=== PATIENT | male | born 1945 | race Caucasian/White ===

== ENCOUNTER 2016-09-15 08:00 | Day surgery (SDC) | payer OTHER ==
[2016-09-11 10:47] LABS: Basophils # (auto) 0 uL; Basophils % (auto) 0.3 % (0.0-2.0); Eosinophils # (auto) 0.1 uL; Eosinophils % (auto) 1.3 % (0.0-7.0); Hematocrit 43.2 % (41.0-53.0); Hemoglobin 14.4 g/dL (13.5-17.5); Lymphocytes # (auto) 2.9 uL; Lymphocytes % (auto) 31.5 % (10.0-50.0); Mean Corpuscular Hemoglobin 32.4 pg (28.0-32.0); Mean Corpuscular Hgb Conc. 33.3 g/dL (32.0-36.0); Mean Corpuscular Volume 97.5 fL (80.0-100.0); Mean Platelet Volume 8.2 fL (7.4-10.4); Monocytes # (auto) 0.4 uL; Monocytes % (auto) 4.4 % (0.0-12.0); Neutrophils # (auto) 5.7 uL; Neutrophils % (auto) 62.5 % (37.0-80.0); Platelet Count (auto) 233 10^3/uL (140-450); Red Cell Distribution Width 13.1 % (11.6-16.0); White Blood Cell 9.2 10^3/uL (4.4-10.8)
[2016-09-11 11:20] LABS: Partial Thromboplastin Time 22.9 sec (22.64-33.71); Prothrombin Time 10.3 sec (9.37-12.3)
[~2016-09-15] VITALS: Ht 160 cm; Wt 75.7 kg
[~2016-09-15 08:00] MED LIST: ACET-929 PO; ATOR10TA52 PO; IBUP800T24 PO; PERI1TAB PO
[2016-09-15] MEDS ORDERED: diphenhdrAMINE HCL 50 MG/1 ML VL ONE (08:10)
[2016-09-15] MEDS ORDERED: SODIUM CHLORIDE LOCK 10 ML ONE (08:10)
[2016-09-15] MEDS ORDERED: NALOXONE HCL 0.4 MG/ML VIAL ONE (08:11)
[2016-09-15] MEDS ORDERED: FLUMAZENIL 0.1 MG/ML INJ 10ML MDV IV ONE (08:11)
[2016-09-15] MEDS: MIDAZOLAM HCL 5 MG/ML-1ML VIAL ONE ×4 (09:34→09:46)
[2016-09-15] MEDS: fentaNYL CITRATE 100 MCG/2 ML VL ONE ×3 (09:34→09:42)
[2016-09-15] MEDS ORDERED: LABETALOL HCL 5 MG/ML 4ML SYRINGE IV ONE ×2 (10:30→10:45)
[2016-09-15] MEDS ORDERED: hydrALAZINE HCL 20 MG/ML VL ONE (11:01)
[2016-09-15] MEDS ORDERED: hydrALAZINE HCL 20 MG/ML VL IV ONE (11:15)
[2016-09-15 12:00] VITALS: BP 163/90
== END 2016-09-15 12:00 | disposition home or self-care (01) ==
LOC: GI 08:00
PROVIDERS: ATTEND Internal Medicine Gastroenterology
DX: Z12.11 Encounter for screening for malignant neoplasm of colon (principal); K57.30 Diverticulosis of large intestine without perforation or abscess without bleeding; Z87.891 Personal history of nicotine dependence
CPT/HCPCS: 36415; 45378; 85025; 85610; 85730; J0360; J1200; J2250; J3010; J3490; J7030

== ENCOUNTER → 2016-09-25 | Outpatient (CLI) | payer OTHER ==
[2016-09-25 11:07] LABS: Urine RBC None Seen /hpf (0 - 3)
[2016-09-25 11:21] LABS: Basophils # (auto) 0 uL; Basophils % (auto) 0.4 % (0.0-2.0); Eosinophils # (auto) 0.2 uL; Eosinophils % (auto) 2.2 % (0.0-7.0); Hematocrit 42.6 % (41.0-53.0); Lymphocytes # (auto) 2.5 uL; Lymphocytes % (auto) 30.3 % (10.0-50.0); Mean Corpuscular Hemoglobin 32.2 pg (28.0-32.0); Mean Corpuscular Hgb Conc. 32.9 g/dL (32.0-36.0); Mean Corpuscular Volume 98.1 fL (80.0-100.0); Mean Platelet Volume 8.3 fL (7.4-10.4); Monocytes # (auto) 0.4 uL; Monocytes % (auto) 5.5 % (0.0-12.0); Neutrophils % (auto) 61.6 % (37.0-80.0); Platelet Count (auto) 258 10^3/uL (140-450); Red Cell Distribution Width 13.2 % (11.6-16.0); White Blood Cell 8.2 10^3/uL (4.4-10.8)
[2016-09-25 11:30] LABS: Urine Bilirubin Negative (Negative); Urine Blood Negative /uL (Negative); Urine Glucose Normal (Normal); Urine Ketone Negative (Negative); Urine Nitrite Negative (Negative); Urine Squamous Epithelial Cell FEW /hpf (<5); Urine Urobilinogen Normal (Negative)
[2016-09-25 11:32] LABS: Urine Color Straw (Yellow)
[2016-09-25 11:43] LABS: Albumin 4.1 g/dL (3.4-5.0); BUN/Creatinine Ratio 26.5; Bilirubin, Total 0.5 mg/dL (0.2-1.0); Calcium 8.6 mg/dL (8.5-10.1); Potassium 4.2 mmol/L (3.5-5.1); Total Protein 6.8 g/dL (6.4-8.2)
== END | disposition home or self-care (01) ==
LOC: LAB 10:37
PROVIDERS: ATTEND Internal Medicine
DX: Z00.00 Encounter for general adult medical examination without abnormal findings (principal); E55.9 Vitamin D deficiency, unspecified
CPT/HCPCS: 36415; 80053; 80061; 81001; 82306; 83036; 84153; 85025; 85049

== ENCOUNTER → 2016-10-20 | Outpatient (CLI) | payer OTHER | END | disposition home or self-care (01) | LOC: LAB 13:19 | PROVIDERS: ATTEND Internal Medicine Gastroenterology | DX: Z12.11 Encounter for screening for malignant neoplasm of colon (principal) | CPT/HCPCS: 82270 ==

== ENCOUNTER → 2016-10-20 | Outpatient (CLI) | payer OTHER | END | disposition home or self-care (01) | LOC: LAB 10:00 | PROVIDERS: ATTEND Internal Medicine | DX: B07.9 Viral wart, unspecified (principal) ==

== ENCOUNTER → 2017-02-10 | Outpatient (CLI) | payer OTHER | END | disposition home or self-care (01) | LOC: XYW 08:05 | PROVIDERS: ATTEND Internal Medicine | DX: Z01.810 Encounter for preprocedural cardiovascular examination (principal); I08.3 Combined rheumatic disorders of mitral, aortic and tricuspid valves; I51.7 Cardiomegaly | CPT/HCPCS: 93306 ==

== ENCOUNTER 2017-05-05 06:08 | Inpatient (IN) | payer OTHER ==
[2017-04-30 11:37] LABS: Basophils # (auto) 0 uL; Basophils % (auto) 0.2 % (0.0-2.0); CONDITION Y; Eosinophils # (auto) 0.1 uL; Eosinophils % (auto) 1.4 % (0.0-7.0); Hematocrit 43.2 % (41.0-53.0); Hemoglobin 14.9 g/dL (13.5-17.5); Lymphocytes # (auto) 2.5 uL; Lymphocytes % (auto) 29.3 % (10.0-50.0); Mean Corpuscular Hemoglobin 33.8 pg (28.0-32.0); Mean Corpuscular Hgb Conc. 34.4 g/dL (32.0-36.0); Mean Corpuscular Volume 98.2 fL (80.0-100.0); Mean Platelet Volume 8.8 fL (7.4-10.4); Monocytes # (auto) 0.4 uL; Monocytes % (auto) 5.1 % (0.0-12.0); Neutrophils # (auto) 5.5 uL; Platelet Count (auto) 242 10^3/uL (140-450); Red Cell Distribution Width 13.3 % (11.6-16.0); White Blood Cell 8.6 10^3/uL (4.4-10.8)
[2017-04-30 11:42] LABS: Urine Bilirubin Negative (Negative); Urine Blood Negative /uL (Negative); Urine Glucose Normal (Normal); Urine Ketone Negative (Negative); Urine Nitrite Negative (Negative); Urine RBC <1 /hpf (0 - 3); Urine Urobilinogen Normal (Negative)
[2017-04-30 11:50] LABS: Albumin 4.1 g/dL (3.4-5.0); BUN/Creatinine Ratio 21.7; Bilirubin, Total 0.9 mg/dL (0.2-1.0); Calcium 8.8 mg/dL (8.5-10.1); Total Protein 7.1 g/dL (6.4-8.2)
[2017-04-30 11:57] LABS: INR 0.96 (0.9-1.15); Partial Thromboplastin Time 26.7 sec (22.64-33.71); Prothrombin Time 10.5 sec (9.37-12.3)
[2017-04-30 12:09] LABS: Urine Color Straw (Yellow)
[~2017-05-05] VITALS: Ht 160 cm; Wt 90.4 kg
[~2017-05-05 06:08] MED LIST changes: -ACET-929 PO
[2017-05-05] MEDS ORDERED: ceFAZolin 1GM/50ML D5W 100 ML IV ONE (06:21)
[2017-05-05] MEDS ORDERED: fentaNYL CITRATE 100 MCG/2 ML VL ONE (07:11)
[2017-05-05] MEDS ORDERED: MORPHINE SULF(PF) 0.5MG/ML 10ML VIAL ONE (07:11)
[2017-05-05] MEDS ORDERED: MIDAZOLAM HCL 1MG/1ML-2 ML VIAL ONE ×2 (07:12→07:42)
[2017-05-05] MEDS ORDERED: TETRACAINE 1% INJ 2 ML VIAL IJ ONE (07:13)
[2017-05-05] MEDS ORDERED: PROPOFOL 10 MG/ML 20 ML IV ONE (07:41)
[2017-05-05] MEDS ORDERED: DEXAMETHASONE SOD PHOS 10MG/1ML VIAL INJ ONE (07:41)
[2017-05-05] MEDS ORDERED: NALOXONE HCL 0.4 MG/ML VIAL IV PRN (08:15)
[2017-05-05] MEDS ORDERED: DEXAMETHASONE SOD PHOS 10MG/1ML VIAL INJ IV PRN (08:15)
[2017-05-05] MEDS ORDERED: HYDROmorphone HCL 2 MG/ML VL IV PRN (08:15)
[2017-05-05] MEDS ORDERED: ePHEDrine SULFATE 50 MG/ML AMP IV PRN (08:15)
[2017-05-05] MEDS ORDERED: ONDANSETRON HCL 4 MG/2 ML VIAL IV ONE (08:15)
[2017-05-05] MEDS ORDERED: KETOROLAC TROMETH 30 MG/ML 1ML VIAL IV ONE (08:15)
[2017-05-05] MEDS ORDERED: LABETALOL HCL 5 MG/ML 4ML SYRINGE IV PRN (08:15)
[2017-05-05] MEDS ORDERED: NALBUPHINE HCL 10 MG/1ml INJECTION SUBCUT ONE (08:15)
[2017-05-05] MEDS ORDERED: MORPHINE SULF INJ 2 MG/ML SYRINGE 1ML IV PRN (08:15)
[2017-05-05] MEDS ORDERED: MIDAZOLAM HCL 1MG/1ML-2 ML VIAL IV PRN (08:15)
[2017-05-05] MEDS ORDERED: diphenhdrAMINE HCL 50 MG/1 ML VL IV PRN (08:15)
[2017-05-05] MEDS ORDERED: PHENYLEPHRINE HCL 10 MG/ML VL ONE (08:55)
[2017-05-05] MEDS ORDERED: KETOROLAC TROMETH 30 MG/ML 1ML VIAL ONE (08:55)
[2017-05-05] MEDS: LACTATED RINGER'S 1,000 ML IV SCH (10:32)
[2017-05-05] MEDS ORDERED: ACETAMINOPHEN 325 MG TAB PO PRN (10:45)
[2017-05-05] MEDS ORDERED: ONDANSETRON HCL 4 MG/2 ML VIAL IV PRN (10:45)
[2017-05-05] MEDS: ceFAZolin 1GM/50ML D5W 50 ML IV SCH ×4 (12:00→21:30)
[2017-05-05] MEDS: SODIUM CHLOR 0.9% PF (SALINE LOCK) 10ML VIAL IV SCH ×2 (14:00→22:26)
[2017-05-05 16:38] VITALS: BP 151/90
[2017-05-05 17:00] VITALS: BP 151/90
[2017-05-05 20:00] VITALS: BP 124/81
[2017-05-05] MEDS: HYDROmorphone HCL 2 MG/ML VL IV PRN (20:27)
[2017-05-05 22:00] VITALS: BP 124/81
[2017-05-05] MEDS: oxyCODONE ER 10 MG TAB PO SCH (22:25)
[2017-05-05] MEDS: DOCUSATE SOD 100 MG CAP PO SCH (22:25)
[2017-05-06] MEDS: TEMAZEPAM 15 MG CAP PO PRN ×2 (01:00→21:30)
[2017-05-06 05:00] VITALS: BP 124/64
[2017-05-06] MEDS: SODIUM CHLOR 0.9% PF (SALINE LOCK) 10ML VIAL IV SCH ×3 (05:08→21:30)
[2017-05-06] MEDS: LACTATED RINGER'S 1,000 ML IV SCH (05:08)
[2017-05-06] MEDS: HYDROmorphone HCL 2 MG/ML VL IV PRN ×3 (05:44→17:44)
[2017-05-06 06:20] LABS: Hemoglobin 11.6 g/dL (13.5-17.5)
[2017-05-06 09:00] VITALS: BP 122/69
[2017-05-06] MEDS: oxyCODONE ER 10 MG TAB PO SCH ×2 (10:33→21:30)
[2017-05-06] MEDS: ENOXAPARIN SOD 40 MG/0.4 ML SYRINGE SC SCH (10:33)
[2017-05-06] MEDS: DOCUSATE SOD 100 MG CAP PO SCH ×2 (10:33→21:30)
[2017-05-06 13:00] VITALS: BP 124/81
[2017-05-06 17:09] VITALS: BP 147/98
[2017-05-06 21:37] VITALS: BP 143/85
[2017-05-07 04:46] VITALS: BP 165/75
[2017-05-07] MEDS: SODIUM CHLOR 0.9% PF (SALINE LOCK) 10ML VIAL IV SCH ×3 (06:06→21:53)
[2017-05-07 06:14] LABS: Hematocrit 33.2 % (41.0-53.0); Hemoglobin 11.4 g/dL (13.5-17.5)
[2017-05-07] MEDS: HYDROmorphone HCL 2 MG/ML VL IV PRN ×2 (06:55→12:30)
[2017-05-07 08:46] VITALS: BP 166/90
[2017-05-07] MEDS: HYDROcodone-ACET 10/325MG TAB PO PRN ×2 (08:56→17:05)
[2017-05-07] MEDS: ENOXAPARIN SOD 40 MG/0.4 ML SYRINGE SC SCH (10:44)
[2017-05-07] MEDS: oxyCODONE ER 10 MG TAB PO SCH ×2 (10:44→21:53)
[2017-05-07] MEDS: DOCUSATE SOD 100 MG CAP PO SCH ×2 (10:45→21:53)
[2017-05-07] MEDS ORDERED: LISINOPRIL 10 MG TAB PO ONE (11:30)
[2017-05-07 13:00] VITALS: BP 162/91
[2017-05-07 16:29] VITALS: BP 148/97
[2017-05-07 21:50] VITALS: BP 137/75
[2017-05-07] MEDS: TEMAZEPAM 15 MG CAP PO PRN (21:53)
[2017-05-08 04:53] VITALS: BP 119/70
[2017-05-08] MEDS: SODIUM CHLOR 0.9% PF (SALINE LOCK) 10ML VIAL IV SCH ×3 (05:57→21:34)
[2017-05-08] MEDS ORDERED: OMEG1CAP59 PO (07:55)
[2017-05-08] MEDS ORDERED: DIPH25CA66 PO (07:55)
[2017-05-08] MEDS ORDERED: FEXO-42 PO (07:55)
[2017-05-08] MEDS ORDERED: MULTTAB61 PO (07:55)
[2017-05-08] MEDS ORDERED: GLUC1TAB22 PO (07:55)
[2017-05-08] MEDS ORDERED: CHOL20007 PO (07:56)
[2017-05-08 08:10] LABS: Hematocrit 33.7 % (41.0-53.0); Hemoglobin 11.6 g/dL (13.5-17.5)
[2017-05-08 08:33] VITALS: BP 154/97
[2017-05-08] MEDS: HYDROcodone-ACET 10/325MG TAB PO PRN ×2 (08:41→18:02)
[2017-05-08] MEDS: DOCUSATE SOD 100 MG CAP PO SCH ×2 (10:25→21:35)
[2017-05-08] MEDS: ENOXAPARIN SOD 40 MG/0.4 ML SYRINGE SC SCH (10:25)
[2017-05-08] MEDS: oxyCODONE ER 10 MG TAB PO SCH ×2 (10:25→21:35)
[2017-05-08] MEDS: LISINOPRIL 10 MG TAB PO SCH (10:26)
[2017-05-08 13:03] VITALS: BP 125/78
[2017-05-08 16:47] VITALS: BP 135/78
[2017-05-08] MEDS: TEMAZEPAM 15 MG CAP PO PRN (21:35)
[2017-05-08 22:00] VITALS: BP 130/70
[2017-05-09 05:00] VITALS: BP 115/75
[2017-05-09 06:10] LABS: Hematocrit 32.4 % (41.0-53.0)
[2017-05-09] MEDS: SODIUM CHLOR 0.9% PF (SALINE LOCK) 10ML VIAL IV SCH ×2 (06:36→17:22)
[2017-05-09] MEDS: HYDROcodone-ACET 10/325MG TAB PO PRN ×2 (06:41→15:19)
[2017-05-09 08:35] VITALS: BP 134/65
[2017-05-09] MEDS: oxyCODONE ER 10 MG TAB PO SCH (09:16)
[2017-05-09] MEDS: ENOXAPARIN SOD 40 MG/0.4 ML SYRINGE SC SCH (09:16)
[2017-05-09] MEDS: LISINOPRIL 10 MG TAB PO SCH (09:17)
[2017-05-09] MEDS: DOCUSATE SOD 100 MG CAP PO SCH (09:17)
[2017-05-09 12:43] VITALS: BP 137/68
[2017-05-09 16:30] VITALS: BP 111/63
== END 2017-05-09 17:25 | disposition home health service (06) | DRG 470 ==
LOC: SUR 06:08 → TELE-WESTW 06:09
PROVIDERS: ADMIT Orthopaedic Surgery; ATTEND Internal Medicine
PROC: 0SRC0J9 Replacement of Right Knee Joint with Synthetic Substitute, Cemented, Open Approach (ICD-10-PCS; principal; 2017-05-05 07:08)
DX: M17.11 Unilateral primary osteoarthritis, right knee (principal); I10 Essential (primary) hypertension; E78.5 Hyperlipidemia, unspecified; Z87.39 Personal history of other diseases of the musculoskeletal system and connective tissue; Z79.01 Long term (current) use of anticoagulants
CPT/HCPCS: 36415; 73562; 80053; 81001; 85014; 85018; 85025; 85610; 85730; 86850; 86900; 86901; 97116; 97163; 97530; J0690; J1100; J1885; J2250; J2405; J2704

== ENCOUNTER → 2017-07-22 | Outpatient (CLI) | payer OTHER ==
[~2017-07-22] MED LIST changes: +CHOL20007 PO; +DIPH25CA66 PO; +GLUC1TAB22 PO; +MULTTAB61 PO; +OMEG1CAP59 PO
[2017-07-22 08:39] LABS: Basophils # (auto) 0.1 uL; Basophils % (auto) 0.6 % (0.0-2.0); Eosinophils # (auto) 0.2 uL; Hematocrit 41.9 % (41.0-53.0); Hemoglobin 13.8 g/dL (13.5-17.5); Lymphocytes # (auto) 2.4 uL; Lymphocytes % (auto) 29.2 % (10.0-50.0); Mean Corpuscular Hemoglobin 32.1 pg (28.0-32.0); Mean Corpuscular Volume 97.1 fL (80.0-100.0); Mean Platelet Volume 7.3 fL (6.9-10.8); Monocytes # (auto) 0.4 uL; Monocytes % (auto) 5.3 % (0.0-12.0); Neutrophils # (auto) 5.1 uL; Neutrophils % (auto) 61.9 % (37.0-80.0); Platelet Count (auto) 294 10^3/uL (140-450); Red Cell Distribution Width 13.7 % (11.8-14.3); White Blood Cell 8.3 10^3/uL (4.4-10.8)
[2017-07-22 09:09] LABS: Albumin 3.9 g/dL (3.4-5.0); BUN/Creatinine Ratio 21.2; Bilirubin, Total 0.3 mg/dL (0.2-1.0); Calcium 9.1 mg/dL (8.5-10.1); Potassium 4.4 mmol/L (3.5-5.1); Total Protein 7.3 g/dL (6.4-8.2)
== END | disposition home or self-care (01) ==
LOC: LAB 08:18
PROVIDERS: ATTEND Internal Medicine
DX: I10 Essential (primary) hypertension (principal); E78.2 Mixed hyperlipidemia
CPT/HCPCS: 36415; 80053; 80061; 85025

== ENCOUNTER → 2017-11-10 | Outpatient (CLI) | payer OTHER | END | disposition home or self-care (01) | LOC: LAB 10:31 | PROVIDERS: ATTEND Internal Medicine Gastroenterology | DX: Z12.11 Encounter for screening for malignant neoplasm of colon (principal) | CPT/HCPCS: 82270 ==

== ENCOUNTER → 2018-02-23 | Outpatient (CLI) | payer OTHER ==
[2018-02-23 08:34] LABS: Basophils # (auto) 0.1 uL; Basophils % (auto) 0.4 % (0.0-2.0); Eosinophils # (auto) 0.1 uL; Eosinophils % (auto) 0.5 % (0.0-7.0); Hematocrit 41.4 % (41.0-53.0); Hemoglobin 13.8 g/dL (13.5-17.5); Lymphocytes # (auto) 3.6 uL; Lymphocytes % (auto) 25.2 % (10.0-50.0); Mean Corpuscular Hemoglobin 32.4 pg (28.0-32.0); Mean Corpuscular Hgb Conc. 33.3 g/dL (32.0-36.0); Mean Corpuscular Volume 97.3 fL (80.0-100.0); Monocytes # (auto) 0.7 uL; Neutrophils # (auto) 9.8 uL; Neutrophils % (auto) 68.9 % (37.0-80.0); Platelet Count (auto) 238 10^3/uL (140-450); Red Blood Cells 4.26 10^6/uL (4.5-5.90); Red Cell Distribution Width 13.4 % (11.8-14.3); White Blood Cell 14.2 10^3/uL (4.4-10.8)
[2018-02-23 09:09] LABS: Albumin 3.6 g/dL (3.4-5.0); BUN/Creatinine Ratio 27.6; Bilirubin, Total 0.2 mg/dL (0.2-1.0); Calcium 8.1 mg/dL (8.5-10.1); Potassium 3.7 mmol/L (3.5-5.1); Total Protein 6.3 g/dL (6.4-8.2)
== END | disposition home or self-care (01) ==
LOC: LAB 08:15
PROVIDERS: ATTEND Physician Assistant
DX: I10 Essential (primary) hypertension (principal); M06.9 Rheumatoid arthritis, unspecified; I65.22 Occlusion and stenosis of left carotid artery; E78.2 Mixed hyperlipidemia; R35.1 Nocturia
CPT/HCPCS: 36415; 80053; 80061; 84153; 85025

== ENCOUNTER → 2018-05-18 | Outpatient (CLI) | payer OTHER | END | disposition home or self-care (01) | LOC: XY 09:27 | PROVIDERS: ATTEND Physician Assistant | DX: I65.22 Occlusion and stenosis of left carotid artery (principal); I10 Essential (primary) hypertension | CPT/HCPCS: 93886 ==

== ENCOUNTER → 2018-07-12 | Outpatient (CLI) | payer OTHER ==
[~2018-07-12] MED LIST changes: +ALBUTEROL SULF 2.5 MG/0.5ML(0.5%) NEB SOLN ONE
== END | disposition home or self-care (01) ==
LOC: RT 09:02
PROVIDERS: ATTEND Internal Medicine Pulmonary Disease
DX: J44.9 Chronic obstructive pulmonary disease, unspecified (principal)
CPT/HCPCS: 94060; J7611

== ENCOUNTER → 2018-07-21 | Outpatient (CLI) | payer OTHER ==
[~2018-07-21] MED LIST changes: -ALBUTEROL SULF 2.5 MG/0.5ML(0.5%) NEB SOLN ONE
== END | disposition home or self-care (01) ==
LOC: LAB 14:46
PROVIDERS: ATTEND Physician Assistant
DX: M06.9 Rheumatoid arthritis, unspecified (principal); M19.041 Primary osteoarthritis, right hand; I10 Essential (primary) hypertension
CPT/HCPCS: 36415; 85652; 86141; 86431

== ENCOUNTER → 2018-12-30 | Outpatient (CLI) | payer OTHER ==
[2018-12-30 09:38] LABS: Basophils # (auto) 0.1 uL; Basophils % (auto) 0.8 % (0.0-2.0); Eosinophils # (auto) 0.1 uL; Eosinophils % (auto) 1.9 % (0.0-7.0); Hematocrit 42.4 % (41.0-53.0); Hemoglobin 14.4 g/dL (13.5-17.5); Lymphocytes # (auto) 1.8 uL; Lymphocytes % (auto) 23.8 % (10.0-50.0); Mean Corpuscular Hemoglobin 32.9 pg (28.0-32.0); Mean Corpuscular Hgb Conc. 33.9 g/dL (32.0-36.0); Monocytes # (auto) 0.4 uL; Monocytes % (auto) 5.6 % (0.0-12.0); Neutrophils % (auto) 67.9 % (37.0-80.0); Platelet Count (auto) 265 10^3/uL (140-450); Red Blood Cells 4.37 10^6/uL (4.5-5.90); Red Cell Distribution Width 13.2 % (11.8-14.3); White Blood Cell 7.4 10^3/uL (4.4-10.8)
[2018-12-30 10:05] LABS: Albumin 3.9 g/dL (3.4-5.0); Calcium 8.7 mg/dL (8.5-10.1)
[2018-12-30 10:12] LABS: BUN/Creatinine Ratio 23.1; Bilirubin, Total 0.7 mg/dL (0.2-1.0); Total Protein 6.9 g/dL (6.4-8.2)
== END | disposition home or self-care (01) ==
LOC: LAB 09:12
PROVIDERS: ATTEND Physician Assistant
DX: Z12.5 Encounter for screening for malignant neoplasm of prostate (principal); Z12.11 Encounter for screening for malignant neoplasm of colon; E78.2 Mixed hyperlipidemia; M19.041 Primary osteoarthritis, right hand; D50.9 Iron deficiency anemia, unspecified; I10 Essential (primary) hypertension
CPT/HCPCS: 36415; 80053; 80061; 84153; 85025

== ENCOUNTER → 2019-01-03 | Outpatient (CLI) | payer OTHER | END | disposition home or self-care (01) | LOC: LAB 10:48 | PROVIDERS: ATTEND Physician Assistant | DX: Z12.11 Encounter for screening for malignant neoplasm of colon (principal); Z12.5 Encounter for screening for malignant neoplasm of prostate; I10 Essential (primary) hypertension; E78.2 Mixed hyperlipidemia; D50.9 Iron deficiency anemia, unspecified; M19.041 Primary osteoarthritis, right hand | CPT/HCPCS: 82274 ==

== ENCOUNTER → 2019-11-08 | Outpatient (CLI) | payer OTHER | END | disposition home or self-care (01) | LOC: LAB 15:00 | PROVIDERS: ATTEND Physician Assistant | DX: C44.629 Squamous cell carcinoma of skin of left upper limb, including shoulder (principal); L57.0 Actinic keratosis ==

== ENCOUNTER → 2020-01-09 | Outpatient (CLI) | payer OTHER ==
[~2020-01-09] MED LIST changes: +MULT-1018 PO; -MULTTAB61 PO
[2020-01-09 08:12] LABS: Basophils # (auto) 0.1 10 ^3/uL (0-0.2); Basophils % (auto) 0.7 % (0.0-2.0); Eosinophils # (auto) 0.2 10 ^3/uL (0-0.8); Eosinophils % (auto) 2.4 % (0.0-7.0); Hematocrit 42.6 % (41.0-53.0); Hemoglobin 14.4 g/dL (13.5-17.5); Lymphocytes # (auto) 1.8 10 ^3/uL (0.4-5.4); Lymphocytes % (auto) 23.4 % (10.0-50.0); Mean Corpuscular Hemoglobin 32.6 pg (28.0-32.0); Mean Corpuscular Hgb Conc. 33.9 g/dL (32.0-36.0); Mean Corpuscular Volume 96.2 fL (80.0-100.0); Monocytes # (auto) 0.5 10 ^3/uL (0-1.3); Monocytes % (auto) 6.5 % (0.0-12.0); Neutrophils # (auto) 5.1 10 ^3/uL (1.6-8.6); Platelet Count (auto) 251 10^3/uL (140-450); Red Blood Cells 4.42 10^6/uL (4.5-5.90); Red Cell Distribution Width 13.2 % (11.8-14.3); White Blood Cell 7.6 10^3/uL (4.4-10.8)
[2020-01-09 08:45] LABS: Albumin 3.6 g/dL (3.4-5.0); Calcium 8.6 mg/dL (8.5-10.1)
[2020-01-09 08:51] LABS: BUN/Creatinine Ratio 18.5; Bilirubin, Total 0.4 mg/dL (0.2-1.0); Total Protein 6.8 g/dL (6.4-8.2)
== END | disposition home or self-care (01) ==
LOC: LAB 07:55
PROVIDERS: ATTEND Internal Medicine
DX: J44.9 Chronic obstructive pulmonary disease, unspecified (principal); I10 Essential (primary) hypertension; E78.2 Mixed hyperlipidemia; R35.1 Nocturia; M06.9 Rheumatoid arthritis, unspecified
CPT/HCPCS: 36415; 80053; 80061; 84153; 85025

== ENCOUNTER → 2020-05-09 | Outpatient (CLI) | payer OTHER | END | disposition home or self-care (01) | LOC: LAB 13:00 | PROVIDERS: ATTEND Physician Assistant | DX: D04.62 Carcinoma in situ of skin of left upper limb, including shoulder (principal); L57.0 Actinic keratosis ==

== ENCOUNTER → 2020-05-16 | Outpatient (CLI) | payer OTHER ==
[~2020-05-16] MED LIST changes: +cloNIDine HCL 0.1 MG TAB PO ONE
== END | disposition home or self-care (01) ==
LOC: XYW 07:39
PROVIDERS: ATTEND Internal Medicine
DX: I07.1 Rheumatic tricuspid insufficiency (principal); I48.91 Unspecified atrial fibrillation; R07.9 Chest pain, unspecified
CPT/HCPCS: 93306

== ENCOUNTER → 2023-10-13 | Outpatient (CLI) | payer OTHER ==
[~2023-10-13] MED LIST changes: +IBUP-1456 PO; -IBUP800T24 PO; -cloNIDine HCL 0.1 MG TAB PO ONE
[2023-10-13 09:45] LABS: Basophils # (auto) 0.1 10 ^3/uL (0-0.2); Basophils % (auto) 0.8 % (0.0-2.0); Eosinophils # (auto) 0.2 10 ^3/uL (0-0.8); Eosinophils % (auto) 2.9 % (0.0-7.0); Hematocrit 41.9 % (41.0-53.0); Hemoglobin 14.1 g/dL (13.5-17.5); Lymphocytes # (auto) 1.8 10 ^3/uL (0.4-5.4); Lymphocytes % (auto) 24.8 % (10.0-50.0); Mean Corpuscular Hgb Conc. 33.7 g/dL (32.0-36.0); Mean Corpuscular Volume 97.9 fL (80.0-100.0); Monocytes # (auto) 0.4 10 ^3/uL (0-1.3); Monocytes % (auto) 5.9 % (0.0-12.0); Neutrophils # (auto) 4.8 10 ^3/uL (1.6-8.6); Neutrophils % (auto) 65.6 % (37.0-80.0); Red Blood Cells 4.28 10^6/uL (4.5-5.90); Red Cell Distribution Width 13.4 % (11.8-14.3); White Blood Cell 7.4 10^3/uL (4.4-10.8)
[2023-10-13 10:17] LABS: Albumin 4.5 g/dL (3.2-4.8); Alkaline Phosphatase 74 U/L (46-116); Anion Gap 3 (5-15); Aspartate Aminotransferase 26 U/L (13-40); BUN/Creatinine Ratio 21.4 (10.0-20.0); Blood Urea Nitrogen 15 mg/dL (9-23); Calcium 9.4 mg/dL (8.5-10.1); Carbon Dioxide 28 mmol/L (20-30); Chloride 108 mmol/L (98-107); Cholesterol 174 mg/dL (< 200); Glucose 100 mg/dL (74-106); LDL Cholesterol 94 mg/dL (< 100); Potassium 4.5 mmol/L (3.5-5.1); Sodium 139 mmol/L (136-145); Triglycerides 65 mg/dL (< 150)
[2023-10-13 10:18] LABS: Bilirubin, Total 0.5 mg/dL (0.2-1.0); HDL Cholesterol 67 mg/dL (40-59); Total Protein 6.6 g/dL (5.7-8.2)
[2023-10-13 12:01] LABS: Alanine Aminotransferase 27 U/L (7-40)
[2023-10-14 08:06] LABS: PSA Free 0.28 ng/mL
== END | disposition home or self-care (01) ==
LOC: LAB 09:23
PROVIDERS: ATTEND Nurse Practitioner Family
DX: Z00.01 Encounter for general adult medical examination with abnormal findings (principal); I10 Essential (primary) hypertension; N40.0 Benign prostatic hyperplasia without lower urinary tract symptoms
CPT/HCPCS: 36415; 80053; 80061; 84153; 84154; 85025

== ENCOUNTER → 2023-11-27 | Outpatient (CLI) | payer OTHER | END | disposition home or self-care (01) | LOC: XYW 10:05 | PROVIDERS: ATTEND Internal Medicine | DX: I65.23 Occlusion and stenosis of bilateral carotid arteries (principal); I73.9 Peripheral vascular disease, unspecified | CPT/HCPCS: 93886; 93925 ==

== ENCOUNTER 2024-03-29 06:17 | Day surgery (SDC) | payer OTHER ==
[2024-03-24 10:10] LABS: Urine Bacteria None Seen /hpf (None Seen)
[2024-03-24 10:33] LABS: Basophils # (auto) 0 10 ^3/uL (0-0.2); Basophils % (auto) 0.4 % (0.0-2.0); Eosinophils # (auto) 0 10 ^3/uL (0-0.8); Eosinophils % (auto) 0.5 % (0.0-7.0); Hematocrit 42.5 % (41.0-53.0); Hemoglobin 14.6 g/dL (13.5-17.5); Lymphocytes # (auto) 1.4 10 ^3/uL (0.4-5.4); Lymphocytes % (auto) 17.3 % (10.0-50.0); Mean Corpuscular Hemoglobin 33.6 pg (28.0-32.0); Mean Corpuscular Hgb Conc. 34.4 g/dL (32.0-36.0); Mean Corpuscular Volume 97.7 fL (80.0-100.0); Monocytes # (auto) 0.5 10 ^3/uL (0-1.3); Monocytes % (auto) 5.7 % (0.0-12.0); Neutrophils # (auto) 6.1 10 ^3/uL (1.6-8.6); Neutrophils % (auto) 76.1 % (37.0-80.0); Nucleated Red Blood Cells % 0.1 %; Red Blood Cells 4.35 10^6/uL (4.5-5.90); Red Cell Distribution Width 13.4 % (11.8-14.3); White Blood Cell 8.1 10^3/uL (4.4-10.8)
[2024-03-24 10:47] LABS: INR 1.05 (0.9-1.15); Partial Thromboplastin Time 26.3 SEC (24.5-34.5); Prothrombin Time 11.1 sec (9.3-11.8)
[2024-03-24 10:49] LABS: Urine Blood Negative /uL (Negative); Urine Clarity Clear (Clear); Urine Color Light-Yellow (Yellow); Urine Protein, UAD Negative (Negative); Urine Specific Gravity 1.019 (1.001-1.035); Urine Urobilinogen Normal (Negative); Urine WBC <1 /hpf (0 - 3); Urine pH 6.5 (5.0-9.0)
[2024-03-24 11:14] LABS: Alanine Aminotransferase 30 U/L (7-40); Albumin 4.7 g/dL (3.2-4.8); Alkaline Phosphatase 72 U/L (46-116); Anion Gap 8 (5-15); Aspartate Aminotransferase 23 U/L (13-40); Bilirubin, Total 0.7 mg/dL (0.2-1.0); Blood Urea Nitrogen 17 mg/dL (9-23); Calcium 9.8 mg/dL (8.7-10.4); Carbon Dioxide 24 mmol/L (20-30); Chloride 106 mmol/L (98-107); Glucose 101 mg/dL (74-106); Potassium 4.5 mmol/L (3.5-5.1); Sodium 138 mmol/L (136-145); Total Protein 7.1 g/dL (5.7-8.2)
[~2024-03-29] VITALS: Ht 160 cm; Wt 70.3 kg
[~2024-03-29 06:17] MED LIST changes: +AMLO1TAB23 PO; -ATOR10TA52 PO; +ATOR40TA52 PO; -IBUP-1456 PO; +LISI40TA16 PO; -PERI1TAB PO; +TIZA4CAP PO
[2024-03-29] MEDS ORDERED: CIPROFLOXACIN 400MG/200ML 200 ML IV ONE (07:44)
[2024-03-29] MEDS ORDERED: MIDAZOLAM HCL 2MG/2ML 2ml VIAL (1mg/ml) ONE (09:20)
[2024-03-29] MEDS ORDERED: fentaNYL CITRATE 100 MCG/2 ML VL ONE (09:20)
[2024-03-29] MEDS ORDERED: PROPOFOL 10 MG/ML 20 ML IV ONE (09:50)
[2024-03-29 09:59] VITALS: TEMP 97.1; O2SAT 92
[2024-03-29] MEDS ORDERED: ONDANSETRON HCL 4 MG/2 ML VIAL IV ONE (10:15)
[2024-03-29] MEDS ORDERED: HYDROmorphone HCL 2 MG/ML VL/or syr IV PRN (10:15)
[2024-03-29 10:50] VITALS: BP 154/89; PULSE 52; RESP 15; O2SAT 95
== END 2024-03-29 11:00 | disposition home or self-care (01) ==
LOC: SUR 06:17
PROVIDERS: ATTEND Urology
DX: N40.1 Benign prostatic hyperplasia with lower urinary tract symptoms (principal); C61 Malignant neoplasm of prostate; R97.20 Elevated prostate specific antigen [PSA]; I10 Essential (primary) hypertension; J44.9 Chronic obstructive pulmonary disease, unspecified; G89.29 Other chronic pain; Z98.890 Other specified postprocedural states; Z87.891 Personal history of nicotine dependence; Z82.3 Family history of stroke; Z79.899 Other long term (current) drug therapy; Z82.49 Family history of ischemic heart disease and other diseases of the circulatory system; Z91.048 Other nonmedicinal substance allergy status
CPT/HCPCS: 36415; 55700; 76872; 80053; 81001; 85025; 85610; 85730; 87086; 88305; 88342; C1769; J0744; J7030; J2250; J2704

== ENCOUNTER → 2024-05-26 | Outpatient (CLI) | payer OTHER | END | disposition home or self-care (01) | LOC: XYW 08:20 | PROVIDERS: ATTEND Urology | DX: C61 Malignant neoplasm of prostate (principal); M19.012 Primary osteoarthritis, left shoulder; M19.011 Primary osteoarthritis, right shoulder; M19.032 Primary osteoarthritis, left wrist; M19.031 Primary osteoarthritis, right wrist; M17.0 Bilateral primary osteoarthritis of knee; M19.072 Primary osteoarthritis, left ankle and foot; M19.071 Primary osteoarthritis, right ankle and foot | CPT/HCPCS: 78306; A9503 ==

== ENCOUNTER → 2025-01-20 | Outpatient (CLI) | payer OTHER | END | disposition home or self-care (01) | LOC: LAB 11:43 | PROVIDERS: ATTEND Family Medicine | DX: Z01.812 Encounter for preprocedural laboratory examination (principal); D48.5 Neoplasm of uncertain behavior of skin ==

== ENCOUNTER 2025-02-28 10:27 | Outpatient (CLI) | payer OTHER ==
[2025-02-28 11:10] LABS: Basophils # (auto) 0 10 ^3/uL (0-0.2); Basophils % (auto) 0.5 % (0.0-2.0); Eosinophils # (auto) 0.1 10 ^3/uL (0-0.8); Eosinophils % (auto) 1.9 % (0.0-7.0); Hematocrit 37.6 % (41.0-53.0); Hemoglobin 12.9 g/dL (13.5-17.5); Lymphocytes # (auto) 1.1 10 ^3/uL (0.4-5.4); Lymphocytes % (auto) 18.4 % (10.0-50.0); Mean Corpuscular Hemoglobin 33.3 pg (28.0-32.0); Mean Corpuscular Hgb Conc. 34.3 g/dL (32.0-36.0); Mean Corpuscular Volume 97.1 fL (80.0-100.0); Monocytes # (auto) 0.4 10 ^3/uL (0-1.3); Monocytes % (auto) 6.5 % (0.0-12.0); Neutrophils # (auto) 4.4 10 ^3/uL (1.6-8.6); Neutrophils % (auto) 72.7 % (37.0-80.0); Platelet Count (auto) 199 10^3/uL (140-450); Red Blood Cells 3.88 10^6/uL (4.5-5.90); Red Cell Distribution Width 13.4 % (11.8-14.3)
[2025-02-28 11:23] LABS: Alanine Aminotransferase 31 U/L (7-40); Albumin 4.6 g/dL (3.2-4.8); Alkaline Phosphatase 67 U/L (46-116); Anion Gap 7 (5-15); Aspartate Aminotransferase 32 U/L (<34); BUN/Creatinine Ratio 29.6 (10.0-20.0); Bilirubin, Total 0.5 mg/dL (0.2-1.0); Blood Urea Nitrogen 29 mg/dL (9-23); Calcium 9.1 mg/dL (8.7-10.4); Carbon Dioxide 23 mmol/L (20-31); Chloride 109 mmol/L (98-107); Glucose 96 mg/dL (74-106); Potassium 4.5 mmol/L (3.5-5.1); Sodium 139 mmol/L (136-145); Total Protein 6.6 g/dL (5.7-8.2)
== END 2025-02-28 17:00 | disposition home or self-care (01) ==
LOC: LAB 10:27
PROVIDERS: ATTEND Student in an Organized Health Care Education/Training Program
DX: I10 Essential (primary) hypertension (principal); E78.5 Hyperlipidemia, unspecified; I73.9 Peripheral vascular disease, unspecified
CPT/HCPCS: 36415; 80053; 82947; 84443; 85025

== ENCOUNTER 2025-06-02 06:50 | Outpatient (CLI) | payer OTHER ==
[2025-06-02 07:41] LABS: Alanine Aminotransferase 32 U/L (7-40); Albumin 4.5 g/dL (3.2-4.8); Alkaline Phosphatase 67 U/L (46-116); Anion Gap 5 (5-15); BUN/Creatinine Ratio 14.5 (10.0-20.0); Blood Urea Nitrogen 11 mg/dL (9-23); Calcium 9.2 mg/dL (8.7-10.4); Carbon Dioxide 26 mmol/L (20-31); Potassium 4.2 mmol/L (3.5-5.1); Sodium 141 mmol/L (136-145); Total Protein 6.8 g/dL (5.7-8.2); Triglycerides 85 mg/dL (< 150)
[2025-06-02 07:42] LABS: Bilirubin, Total 0.7 mg/dL (0.2-1.0); Chloride 110 mmol/L (98-107); Cholesterol 167 mg/dL (< 200); Glucose 107 mg/dL (74-106); HDL Cholesterol 60 mg/dL (40-59)
[2025-06-02 07:47] LABS: Hematocrit 40.6 % (41.0-53.0); Hemoglobin 13.9 g/dL (13.5-17.5); Mean Corpuscular Hemoglobin 33.4 pg (28.0-32.0); Mean Corpuscular Volume 97.6 fL (80.0-100.0); Nucleated Red Blood Cells % 0.2 %
== END 2025-06-02 17:00 | disposition home or self-care (01) ==
LOC: LAB 06:50
PROVIDERS: ATTEND Nurse Practitioner Family
DX: C61 Malignant neoplasm of prostate (principal); E78.5 Hyperlipidemia, unspecified; R35.1 Nocturia; Z00.01 Encounter for general adult medical examination with abnormal findings
CPT/HCPCS: 36415; 80053; 80061; 84153; 84443; 85025

== ENCOUNTER → 2025-08-11 | Outpatient (CLI) | payer OTHER | END | disposition home or self-care (01) | LOC: LAB 08:46 | PROVIDERS: ATTEND Family Medicine | DX: D48.5 Neoplasm of uncertain behavior of skin (principal) ==